=== PATIENT | male | born 2005 | race Caucasian/White ===

== ENCOUNTER 2023-02-21 10:49 | Emergency (ER) | payer BC ==
[2023-02-21 11:09] VITALS: RESP 16
--- NOTE | 2023-02-21 11:40 | ED ---
Wound/Laceration HPI - General Chief Complaint: Wound/Laceration Stated Complaint: L Index Finger Infection/Lac Time Seen by Provider: 02/21/23 11:11 Source: patient, RN notes reviewed Mode of arrival: ambulatory Limitations: no limitations - History of Present Illness Initial Comments: This is a 18-year-old male who presents to the emergency department for an injury to the left index finger. Patient injured his left index finger on a grinder machine setter 3 weeks ago. He had sutures placed at a facility in [place], and the stitches were removed 4 days ago. The family is concerned that this was not properly irrigated before placing sutures. He has since had increasing pain and stiffness to this area. Denies any drainage or redness. The family is concern ed that it did not heal appropriately or that something may have gotten stuck inside of it. Denies any fevers, chills, sore throat, cough, dyspnea, chest pain, palpitations, abdominal pain, nausea, vomiting, diarrhea, back pain, or headaches. - Related Data Previous Rx's Medication Instructions Recorded Cephalexin [Keflex] 500 mg PO Q8HR 5 Days #15 cap 02/21/23 Ibuprofen [Motrin] 600 mg PO Q6HR PRN #30 tab 02/21/23 Allergies Allergy/AdvReac Type Severity Reaction Status Date / Time No Known Allergies Allergy Verified 02/21/23 11:06 Review of Systems ROS Statement: Those systems with pertinent positive or pertinent negative responses have been documented in the HPI. ROS Other: All systems not noted in ROS Statement are negative. Past Medical History Past Medical History: No Reported History History of Any Multi-Drug Resistant Organisms: None Reported Past Surgical History: No Surgical Hx Reported Past Psychological History: No Psychological Hx Reported Smoking Status: Never smoker Past Alcohol Use History: None Reported Past Drug Use History: None Reported General Exam Limitations: no limitations General appearance: alert, in no apparent distress Head exam: Present: atraumatic, normocephalic, normal inspection Respiratory exam: Present: normal lung sounds bilaterally. Absent: respiratory distress, wheezes, rales, rhonchi, stridor Cardiovascular Exam: Present: regular rate, normal rhythm, normal heart sounds. Absent: systolic murmur, diastolic murmur, rubs, gallop, clicks Extremities exam: Present: other (3 cm well healing laceration to the dorsal aspect of the left index finger. There is some mild surrounding swelling and tenderness. No erythema or drainage. Range of motion limited by pain.) Neurological exam: Present: alert, oriented X3, CN II-XII intact Psychiatric exam: Present: normal affect, normal mood Course Vital Signs 02/21/23 02/21/23 11:06 13:32 Temperature 99.3 F 97.6 F Pulse Rate 88 75 Respiratory 16 16 Rate Blood Pressure 145/80 144/78 O2 Sat by Pulse 100 100 Oximetry Medical Decision Making - Medical Decision Making This is a 18-year-old male who presents to the emergency department for pain to the left index finger. Was pt. sent in by a medical professional or institution? @ -No Did you speak to anyone other than the patient for history? @ -No Did you review nursing and triage notes? @ -Yes, and I agree, it is accurate with regards to the patient's symptoms. Were old charts reviewed? @ -No Differential Diagnosis? @ -Differential Finger Pain: Fracture, foreign body, cellulitis, gout, tendinitis, this is not meant to be an all-inclusive list. EKG interpreted by me (3pts min.)? @ -Not obtained X-rays interpreted by me (1pt min.)? @ -X-ray of the left index finger obtained. My interpretation identifies radiopaque foreign bodies. CT interpreted by me (1pt min.)? @ -Not obtained U/S interpreted by me (1pt. min.)? @ -Not obtained What testing was considered but not performed? (CT, X-rays, U/S, labs)? Why? @ -None What meds were considered but not given? Why? @ -None Did you discuss the management of the patient with other professionals? @ -No Did you reconcile home meds? @ -No Was smoking cessation discussed for >3mins.? @ -No Was critical care preformed (if so, how long)? @ -No Were there social determinants of health that impacted care today? How? (Homelessness, low income, unemployed, alcoholism, drug addiction, transportation, low edu. Level, literacy, decrease access to med. care, retirement, rehab)? @ -No Was there de-escalation of care discussed even if they declined? (Discuss DNR or withdrawal of care, Hospice)? @ -No What co-morbidities impacted this encounter? (DM, HTN, Smoking, COPD, CAD, Cancer, CVA, Hep., AIDS, mental health diagnosis, sleep apnea, morbid obesity)? @ -None Was patient admitted / discharged? @ -Discharged. X-ray of the left index finger obtained revealing possible radiopaque foreign bodies at the site of the injury. There do appear to be some discolored areas underneath the skin that may be related to foreign body retention as a result of not thoroughly cleaning out the wound. Discussed with the patient that this is not something we remove in the emergency department due to risk of causing additional injury. Will put the patient on a course of antibiotics. Prescription for Keflex and ibuprofen provided with dosing instructions reviewed. He was also given follow-up with orthopedics, hand surgery, for further evaluation of ongoing symptoms. Undiagnosed new problem with uncertain prognosis? @ -None Drug Therapy requiring intensive monitoring for toxicity (Heparin, Nitro, Insulin, Cardizem)? @ -None Were any procedures done? @ -None Diagnosis/symptom? @ -Left finger pain, soft tissue foreign body, laceration Acute, or Chronic, or Acute on Chronic? @ -Acute Uncomplicated (without systemic symptoms) or Complicated (systemic symptoms)? @ -Uncomplicated Side effects of treatment? @ -None Exacerbation, Progression, or Severe Exacerbation] @ -Not applicable Poses a threat to life or bodily function? @ -No Return precautions reviewed in depth, the patient is instructed to return to the emergency department with any new, worsening, or concerning symptoms. Patient verbalized understanding. This case was discussed in detail with the attending ED physician, Dr. Yoo. Presentation, findings, and treatment plan discussed in detail as well. - Radiology Data Radiology results: report reviewed, image reviewed Disposition Clinical Impression: Laceration, Foreign body (FB) in soft tissue, Finger pain, left Disposition: HOME SELF-CARE Instructions (If sedation given, give patient instructions): Soft Tissue Foreign Body (ED) Additional Instructions: Return to the emergency department with any new, worsening, or concerning symptoms. Take the antibiotic as prescribed for 5 days. Alternate with ibuprofen and Tylenol as needed for pain relief. You can contact the 2 different hand surgeons as listed below for follow-up appointment, and see whoever can get you in the quickest. Follow up with your primary care provider in 1-2 days. Prescriptions: Cephalexin [Keflex] 500 mg PO Q8HR 5 Days #15 cap Ibuprofen [Motrin] 600 mg PO Q6HR PRN #30 tab PRN Reason: Pain Is patient prescribed a controlled substance at d/c from ED?: No Referrals: None,Stated [Primary Care Provider] - 1-2 days Tree Espana DO [Doctor of Osteopathic Medicine] - 1-2 days Dotty Maldonado DO [Doctor of Osteopathic Medicine] - 1-2 days
--- NOTE | 2023-02-21 12:31 | XR ---
EXAMINATION TYPE: XR finger LT DATE OF EXAM: 02/21/2023 11:39 AM INDICATION: Patient age:Male; 18 years old; Reason for study: Left index finger pain; laceration. COMPARISON: None TECHNIQUE: Frontal, lateral and oblique views of the left hand were obtained. FINDINGS: Radiopaque densities are visualized posterior to the proximal interphalangeal joint of the left index finger. There is soft tissue swelling also present. IMPRESSION: Radiopaque densities are posterior to the left index finger near the interphalangeal joint. Findings possibly relating to avulsion injury versus radiopaque foreign bodies.
[2023-02-21 13:34] VITALS: BP 144/78; PULSE 75; TEMP 97.6
== END 2023-02-21 13:34 | disposition home or self-care (01) ==
LOC: EDBD → EC 10:49
DX: S61.211A Laceration without foreign body of left index finger without damage to nail, initial encounter (principal); W31.89XA Contact with other specified machinery, initial encounter
CPT/HCPCS: 12002; 99283